=== PATIENT | female | born 1955 | race Caucasian/White ===

== ENCOUNTER → 2016-10-08 | Outpatient (CLI) | payer OTHER | LOC: CT 14:08 | DX: E27.9 Disorder of adrenal gland, unspecified (principal) | CPT/HCPCS: 36415; 71250; 82565; 84520; J7050; Q9962 ==

== ENCOUNTER → 2016-11-03 | Outpatient (CLI) | payer OTHER | LOC: RAD 12:21 | DX: R60.0 Localized edema (principal) | CPT/HCPCS: 71020 ==

== ENCOUNTER → 2020-12-19 | Outpatient (CLI) | payer OTHER ==
[~2020-12-19] MED LIST: CRESTOR10 MG PO; FISH OIL + D31 EACH PO; LEVOTHYROXINE88 MCG PO; LIORESAL TAB 1010 MG PO; LORAZEPAM2 MG PO; METOPROLOL TART50 MG PO; NEURONTIN 400400 MG PO; NORVASC 5 MG TAB5 MG PO; PRILOSEC OTC20 MG PO; SEROQUEL200 MG PO; TYLENOL 325MG325 MG PO; VENTOLIN HFA 66.7 GM INH
== END ==
LOC: RAD 12:49
DX: M25.542 Pain in joints of left hand (principal); M79.89 Other specified soft tissue disorders
CPT/HCPCS: 73140

== ENCOUNTER → 2020-12-20 | Outpatient (CLI) | payer OTHER ==
[2020-12-20 12:55] LABS: HEMOGLOBIN 14.9 gm/dl (12.3-15.3); RED BLOOD COUNT 4.93 M/UL (4.00-5.10); WHITE BLOOD COUNT 8.1 K/UL (4.5-11.0)
[2020-12-20 13:20] LABS: BUN/CREATININE RATIO 11 (0-10)
== END ==
LOC: LAB 10:23
PROVIDERS: Internal Medicine
DX: J44.9 Chronic obstructive pulmonary disease, unspecified (principal); R53.83 Other fatigue; E78.5 Hyperlipidemia, unspecified; I10 Essential (primary) hypertension; E03.9 Hypothyroidism, unspecified; Z51.81 Encounter for therapeutic drug level monitoring; R73.01 Impaired fasting glucose; E55.9 Vitamin D deficiency, unspecified; Z79.899 Other long term (current) drug therapy
CPT/HCPCS: 36415; 80053; 80061; 82607; 82746; 83036; 84439; 84443; 85025

== ENCOUNTER → 2021-01-08 | Outpatient (CLI) | payer OTHER | LOC: US 09:21 | DX: R01.1 Cardiac murmur, unspecified (principal); R41.3 Other amnesia; I65.23 Occlusion and stenosis of bilateral carotid arteries | CPT/HCPCS: ECHO; 70553; 93306; 93880; A9577 ==

== ENCOUNTER → 2021-05-13 | Outpatient (CLI) | payer OTHER | LOC: NM 07:29 | DX: R74.8 Abnormal levels of other serum enzymes (principal) | CPT/HCPCS: 78306; A9503 ==

== ENCOUNTER → 2021-10-16 | Outpatient (CLI) | payer OTHER | LOC: RAD 16:02 | DX: M54.50 Low back pain, unspecified (principal); M47.816 Spondylosis without myelopathy or radiculopathy, lumbar region; M51.36 Other intervertebral disc degeneration, lumbar region; M85.88 Other specified disorders of bone density and structure, other site | CPT/HCPCS: 72110 ==